=== PATIENT | female | born 1990 | race Caucasian/White ===

== ENCOUNTER 2024-05-30 12:40 | Emergency (ER) | payer OTHER ==
[~2024-05-30] VITALS: Ht 175.3 cm; Wt 65.8 kg
[2024-05-30] MEDS ORDERED: FLUORESCEIN SODIUM 1 MG STRIP ONE (13:16)
[2024-05-30] MEDS ORDERED: TETRACAINE HCL 0.5% OPHT DROP 2 ML BOTTLE ONE (13:16)
[2024-05-30] MEDS: FLUORESCEIN SODIUM 1 MG STRIP OP ONE (13:40)
[2024-05-30] MEDS: TETRACAINE HCL 0.5% OPHT DROP 2 ML BOTTLE OP ONE (13:40)
[2024-05-30] MEDS ORDERED: erythromycin OP (13:42)
[2024-05-30] MEDS ORDERED: AMOX-430 PO (13:50)
[2024-05-30 14:07] VITALS: BP 112/72; TEMP 98; O2SAT 97
[2024-05-31] MEDS ORDERED: CIPR2.5D14 LEFTEYE (20:59)
[2024-05-31] MEDS ORDERED: KETO5DRO83 LEFTEYE (20:59)
== END 2024-05-30 14:07 | disposition home or self-care (01) ==
LOC: ER 12:40
DX: H02.72 Madarosis of eyelid and periocular area (principal); H04.302 Unspecified dacryocystitis of left lacrimal passage; F32.A Depression, unspecified; Z79.899 Other long term (current) drug therapy
CPT/HCPCS: A4606; A4663

== ENCOUNTER 2024-11-21 13:43 | Emergency (ER) | payer OTHER ==
[~2024-11-21] VITALS: Ht 175.3 cm; Wt 70.3 kg
[~2024-11-21 13:43] MED LIST: AMOX-430 PO; CIPR2.5D14 LEFTEYE; KETO5DRO83 LEFTEYE; erythromycin OP
[2024-11-21 14:52] VITALS: BP 117/76; O2SAT 100
== END 2024-11-21 14:52 | disposition home or self-care (01) ==
LOC: ER 13:43
DX: H61.032 Chondritis of left external ear (principal); F41.9 Anxiety disorder, unspecified; F32.A Depression, unspecified
CPT/HCPCS: 70250; A4606; A4663